=== PATIENT | male | born 1995 | race American Indian/Alaskan Native ===

== ENCOUNTER 2020-05-25 13:38 | Inpatient (IN) | payer MEDICAID ==
[2020-05-25] MEDS ORDERED: Sodium Chloride 0.9% 10 ML Syringe FLUSH PRN ×3 (13:49→19:23)
--- NOTE | 2020-05-25 13:54 | EDM.PDOC ---
ED HPI GENERAL MEDICAL PROBLEM - General Stated Complaint: [facility] Time Seen by Provider: 05/25/20 13:48 Source of Information: Reports: Patient, EMS, RN Notes Reviewed History Limitations: Reports: No Limitations - History of Present Illness INITIAL COMMENTS - FREE TEXT/NARRATIVE: 24-year-old gentleman presents emergency department today following an intentional suicide attempt with multiple pill ingestions unfortunately these were empty pill bottles leftover from his dad who recently a couple months ago from cancer. Unknown substance amount unknown type of product.. He does not admit wanting to he is not sure what medications he took - Related Data Allergies Allergy/AdvReac Type Severity Reaction Status Date / Time No Known Allergies Allergy Verified 05/25/20 14:28 Home Meds: Home Meds NK [No Known Home Meds] 05/25/20 [History] Past Medical History - Past Health History Medical/Surgical History: Denies Medical/Surgical History Social & Family History - Tobacco Use Tobacco Use Status *Q: Current Some Day Tobacco User Review of Systems - Review of Systems Review Of Systems: See Below Constitutional: Reports: No Symptoms Respiratory: Reports: No Symptoms Cardiovascular: Reports: No Symptoms GI/Abdominal: Reports: Nausea, Vomiting Psychiatric: Reports: Suicidal Ideation ED EXAM, GENERAL - Physical Exam Exam: See Below Exam Limited By: No Limitations General Appearance: Alert, Mild Distress Eye Exam: Bilateral Eye: PERRL Throat/Mouth: No Airway Compromise Respiratory/Chest: No Respiratory Distress, Lungs Clear, Normal Breath Sounds, No Accessory Muscle Use, Chest Non-Tender Cardiovascular: Regular Rate, Rhythm, No Murmur GI/Abdominal: Soft, Non-Tender Psychiatric: Depressed Mood, Other (Suicidal ideation) Course - Vital Signs Last Recorded V/S: Last Vital Signs Temp 96.8 F L 05/25/20 14:22 Pulse 72 05/25/20 17:04 Resp 16 05/25/20 17:04 BP 141/90 H 05/25/20 17:04 Pulse Ox 97 05/25/20 17:04 - Orders/Labs/Meds Orders: Active Orders 24 hr Category Date Time Status EKG Documentation Completion [RC] ASDIRECTED Care 05/25/20 13:49 Active Peripheral IV Care [RC] . DIRECTED Care 05/25/20 13:49 Active DRUG SCREEN, URINE [URCHEM] Urgent Lab 05/25/20 17:24 Ordered Sodium Chloride 0.9% [Saline Flush] Med 05/25/20 13:49 Active 10 ml FLUSH ASDIRECTED PRN Sodium Chloride 0.9% [Saline Flush] Med 05/25/20 13:49 Active 10 ml FLUSH ASDIRECTED PRN Peripheral IV Insertion Adult [OM.PC] Urgent Oth 05/25/20 13:49 Ordered EKG 12 Lead [EK] Urgent Ther 05/25/20 13:49 Ordered Medication Orders Sodium Chloride (Saline Flush) 10 ml FLUSH ASDIRECTED PRN PRN Reason: Keep Vein Open Last Admin: 05/25/20 14:10 Dose: 10 ml Documented by: [id number] Sodium Chloride (Saline Flush) 10 ml FLUSH ASDIRECTED PRN PRN Reason: Keep Vein Open Last Admin: 05/25/20 16:35 Dose: 10 ml Documented by: [id number] Labs: Laboratory Tests 05/25/20 05/25/20 05/25/20 Range/Units 14:05 14:05 14:05 WBC (4.5-11.0) K/uL RBC (4.30-5.90) M/uL Hgb (12.0-15.0) g/dL Hct (40.0-54.0) % MCV (80-98) fL MCH (27-31) pg MCHC (32-36) % Plt Count (150-400) K/uL Neut % (Auto) (36-66) % Lymph % (Auto) (24-44) % Johnson % (Auto) (2-6) % Eos % (Auto) (2-4) % Baso % (Auto) (0-1) % Sodium (140-148) mmol/L Potassium (3.6-5.2) mmol/L Chloride (100-108) mmol/L Carbon Dioxide (21-32) mmol/L Anion Gap (5.0-14.0) mmol/L BUN (7-18) mg/dL Creatinine (0.8-1.3) mg/dL Est Cr Clr Drug Dosing mL/min Estimated GFR (MDRD) (>60) Glucose (74-106) mg/dL Lactic Acid 1.4 (0.4-2.0) mmol/L Calcium (8.5-10.1) mg/dL Total Bilirubin (0.2-1.0) mg/dL AST (15-37) U/L ALT (12-78) U/L Alkaline Phosphatase (46-116) U/L Total Protein (6.4-8.2) g/dL Albumin (3.4-5.0) g/dL Globulin (2.3-3.5) g/dL Albumin/Globulin Ratio (1.2-2.2) Salicylates 0.6 L (2.0-20.0) mg/dL Acetaminophen 56.7 H (10.0-30.0) ug/mL Ethyl Alcohol mg/dL 05/25/20 05/25/20 05/25/20 Range/Units 14:05 14:05 14:05 WBC 6.4 (4.5-11.0) K/uL RBC 4.95 (4.30-5.90) M/uL Hgb 14.0 (12.0-15.0) g/dL Hct 42.9 (40.0-54.0) % MCV 87 (80-98) fL MCH 28 (27-31) pg MCHC 33 (32-36) % Plt Count 293 (150-400) K/uL Neut % (Auto) 75 H (36-66) % Lymph % (Auto) 18 L (24-44) % Johnson % (Auto) 7 H (2-6) % Eos % (Auto) 0 L (2-4) % Baso % (Auto) 0 (0-1) % Sodium 139 L (140-148) mmol/L Potassium 3.8 (3.6-5.2) mmol/L Chloride 102 (100-108) mmol/L Carbon Dioxide 25 (21-32) mmol/L Anion Gap 15.8 H (5.0-14.0) mmol/L BUN 13 (7-18) mg/dL Creatinine 0.8 (0.8-1.3) mg/dL Est Cr Clr Drug Dosing 146.16 mL/min Estimated GFR (MDRD) > 60 (>60) Glucose 129 H (74-106) mg/dL Lactic Acid (0.4-2.0) mmol/L Calcium 9.3 (8.5-10.1) mg/dL Total Bilirubin 0.7 (0.2-1.0) mg/dL AST 23 (15-37) U/L ALT 58 (12-78) U/L Alkaline Phosphatase 65 (46-116) U/L Total Protein 8.5 H (6.4-8.2) g/dL Albumin 4.3 (3.4-5.0) g/dL Globulin 4.2 H (2.3-3.5) g/dL Albumin/Globulin Ratio 1.0 L (1.2-2.2) Salicylates (2.0-20.0) mg/dL Acetaminophen (10.0-30.0) ug/mL Ethyl Alcohol < 3 mg/dL 05/25/20 Range/Units 16:20 WBC (4.5-11.0) K/uL RBC (4.30-5.90) M/uL Hgb (12.0-15.0) g/dL Hct (40.0-54.0) % MCV (80-98) fL MCH (27-31) pg MCHC (32-36) % Plt Count (150-400) K/uL Neut % (Auto) (36-66) % Lymph % (Auto) (24-44) % Johnson % (Auto) (2-6) % Eos % (Auto) (2-4) % Baso % (Auto) (0-1) % Sodium (140-148) mmol/L Potassium (3.6-5.2) mmol/L Chloride (100-108) mmol/L Carbon Dioxide (21-32) mmol/L Anion Gap (5.0-14.0) mmol/L BUN (7-18) mg/dL Creatinine (0.8-1.3) mg/dL Est Cr Clr Drug Dosing mL/min Estimated GFR (MDRD) (>60) Glucose (74-106) mg/dL Lactic Acid (0.4-2.0) mmol/L Calcium (8.5-10.1) mg/dL Total Bilirubin (0.2-1.0) mg/dL AST (15-37) U/L ALT (12-78) U/L Alkaline Phosphatase (46-116) U/L Total Protein (6.4-8.2) g/dL Albumin (3.4-5.0) g/dL Globulin (2.3-3.5) g/dL Albumin/Globulin Ratio (1.2-2.2) Salicylates (2.0-20.0) mg/dL Acetaminophen 36.4 H (10.0-30.0) ug/mL Ethyl Alcohol mg/dL Meds: Medications Generic Name Dose Route Start Last Admin Trade Name Freq PRN Reason Stop Dose Admin Sodium Chloride 10 ml 05/25/20 13:49 05/25/20 14:10 Saline Flush FLUSH 10 ml ASDIRECTED PRN Administration Keep Vein Open Sodium Chloride 10 ml 05/25/20 13:49 05/25/20 16:35 Saline Flush FLUSH 10 ml ASDIRECTED PRN Administration Keep Vein Open Discontinued Medications Generic Name Dose Route Start Last Admin Trade Name Freq PRN Reason Stop Dose Admin Acetylcysteine 10,886 mg/ 254.43 mls @ 254.43 mls/hr 05/25/20 16:12 05/25/20 16:33 Dextrose/Water IV 05/25/20 16:13 254.43 mls/hr STAT STA Administration Protocol Metoclopramide HCl 5 mg 05/25/20 14:01 05/25/20 14:09 Reglan IVPUSH 05/25/20 14:02 5 mg ONETIME ONE Administration - Re-Assessments/Exams Free Text/Narrative Re-Assessment/Exam: 05/25/20 16:17 Because his Tylenol level is markedly elevated Poison control recommends starting N-acetylcysteine redraw Tylenol level at this time the estimate time of ingestion was around noon there will be a 4-hour level now Departure - Departure Time of Disposition: 17:27 Disposition: Admitted As Inpatient 66 Condition: Fair Clinical Impression: Intentional acetaminophen overdose Qualifiers: Encounter type: initial encounter Qualified Code(s): T39.1X2A - Poisoning by 4- Aminophenol derivatives, intentional self-harm, initial encounter - Discharge Information Referrals: PCP,None [Primary Care Provider] - Sepsis Event Note (ED) - Focused Exam Vital Signs: Vital Signs Temp Pulse Resp BP Pulse Ox 05/25/20 17:04 72 16 141/90 H 97 05/25/20 15:23 78 19 130/82 98 05/25/20 14:38 64 19 120/85 96 05/25/20 14:22 96.8 F L 81 21 H 121/83 96 05/25/20 13:42 81 21 H 121/83 96 - My Orders Last 24 Hours: My Active Orders 05/25/20 13:49 EKG Documentation Completion [RC] ASDIRECTED Peripheral IV Care [RC] . DIRECTED Sodium Chloride 0.9% [Saline Flush] 10 ml FLUSH ASDIRECTED PRN Sodium Chloride 0.9% [Saline Flush] 10 ml FLUSH ASDIRECTED PRN Peripheral IV Insertion Adult [OM.PC] Urgent EKG 12 Lead [EK] Urgent 05/25/20 17:24 DRUG SCREEN, URINE [URCHEM] Urgent - Assessment/Plan Last 24 Hours: My Active Orders 05/25/20 13:49 EKG Documentation Completion [RC] ASDIRECTED Peripheral IV Care [RC] . DIRECTED Sodium Chloride 0.9% [Saline Flush] 10 ml FLUSH ASDIRECTED PRN Sodium Chloride 0.9% [Saline Flush] 10 ml FLUSH ASDIRECTED PRN Peripheral IV Insertion Adult [OM.PC] Urgent EKG 12 Lead [EK] Urgent 05/25/20 17:24 DRUG SCREEN, URINE [URCHEM] Urgent Plan: Assessment Acuity = acute Site and laterality = intentional overdose Etiology = unknown substance Tylenol included Manifestations = none Location of injury = Home Lab values = CBC CMP unremarkable Tylenol level 56.7 this is approximately 2 hours after he was brought in 2 hours later Tylenol number is 36.4 Plan Call discussed case with hospitalist at 1720 and agreed to come and evaluate the patient in the emergency department for admission first dose of N- acetylcysteine has been given This note was dictated using [employer] voice recognition software please call with any questions on syntax or grammar.
[2020-05-25] MEDS ORDERED: Metoclopramide 10 MG/2 ML SDV IVPUSH ONE (14:01)
[2020-05-25] MEDS ORDERED: WATER IV STA ×2 (16:12)
[2020-05-25] MEDS ORDERED: DEXTROSE 5% IV STA ×2 (16:12)
[2020-05-25] MEDS ORDERED: ACETYLCYSTEINE IV STA ×2 (16:12)
[2020-05-25] MEDS ORDERED: ACETYLCYSTEINE IV ONE ×4 (18:21→22:20)
[2020-05-25] MEDS ORDERED: DEXTROSE 5% IV ONE ×4 (18:21→22:20)
[2020-05-25] MEDS ORDERED: WATER IV ONE ×4 (18:21→22:20)
--- NOTE | 2020-05-25 18:23 | PCM.HP.2 ---
H&P History of Present Illness - General Date of Service: 05/25/20 Admit Problem/Dx: Admission Diagnosis/Problem Admission Diagnosis/Problem Medication overdose Source of Information: Patient, Provider, RN Notes Reviewed History Limitations: Reports: Uncooperative (Mildly to moderately agitated) - History of Present Illness Initial Comments - Free Text/Narative: Mr. Carrion is a 24-year-old gentleman who was admitted through the emergency department with a drug overdose secondary to an apparent suicide attempt. He reports that he does not want to keep living the way he has and attempted to end his life today by overdose. He has been smoking methamphetamine on a daily basis. He thinks that he took Tylenol as well as some other medications but is unclear as to what they were. Tylenol level was found to be elevated but has improved after 4 hours. He has been started on acetylcysteine in the emergency department. - Related Data Allergies/Adverse Reactions: Allergies Allergy/AdvReac Type Severity Reaction Status Date / Time No Known Allergies Allergy Verified 05/25/20 14:28 Home Medications: Home Meds NK [No Known Home Meds] 05/25/20 [History] Past Medical History - Past Health History Medical/Surgical History: Denies Medical/Surgical History Social & Family History - Tobacco Use Tobacco Use Status *Q: Never Tobacco User - Recreational Drug Use Recreational Drug Use: Yes Recreational Drug Type: Reports: Methamphetamine H&P Review of Systems - Review of Systems: Review Of Systems: See Below General: Reports: No Symptoms HEENT: Reports: No Symptoms Pulmonary: Reports: No Symptoms Cardiovascular: Reports: No Symptoms Gastrointestinal: Reports: No Symptoms Genitourinary: Reports: No Symptoms Musculoskeletal: Reports: No Symptoms Skin: Reports: No Symptoms Psychiatric: Reports: Depression, Agitation, Suicidal Ideation. Denies: Hallucinations, Homicidal Ideation Neurological: Reports: No Symptoms Hematologic/Lymphatic: Reports: No Symptoms Immunologic: Reports: No Symptoms Exam - Exam Exam: See Below - Vital Signs Vital Signs: Last Vital Signs Temp 96.8 F L 05/25/20 14:22 Pulse 113 H 05/25/20 18:20 Resp 20 05/25/20 18:20 BP 131/52 L 05/25/20 18:20 Pulse Ox 98 05/25/20 17:53 Weight: 160 lb - Exam General: Alert, Cooperative, Moderate Distress HEENT: Conjunctiva Clear, Hearing Intact, Mucosa Moist & [place], Normal Nasal Septum, Posterior Pharynx Clear, Pupils Equal Neck: Supple, Trachea Midline, +2 Carotid Pulse wo Bruit Lungs: Clear to Auscultation, Normal Respiratory Effort Cardiovascular: Regular Rate, Regular Rhythm, Normal S1, Normal S2. No: Systolic Murmur, Diastolic Murmur GI/Abdominal Exam: Soft, Non-Tender, No Organomegaly, No Distention Back Exam: Normal Inspection, Full Range of Motion Extremities: Non-Tender, No Pedal Edema Skin: Warm, Dry, Intact Neurological: Cranial Nerves Intact, Strength Equal Bilateral, Normal Speech, Normal Tone, Sensation Intact. No: Focal Deficit Psychiatric: Depressed, Agitated, Suicidal Ideation - Patient Data Lab Results Last 24 hrs: Laboratory Results - last 24 hr 05/25/20 05/25/20 05/25/20 Range/Units 14:05 14:05 14:05 WBC (4.5-11.0) K/uL RBC (4.30-5.90) M/uL Hgb (12.0-15.0) g/dL Hct (40.0-54.0) % MCV (80-98) fL MCH (27-31) pg MCHC (32-36) % Plt Count (150-400) K/uL Neut % (Auto) (36-66) % Lymph % (Auto) (24-44) % Mckinley % (Auto) (2-6) % Eos % (Auto) (2-4) % Baso % (Auto) (0-1) % Sodium (140-148) mmol/L Potassium (3.6-5.2) mmol/L Chloride (100-108) mmol/L Carbon Dioxide (21-32) mmol/L Anion Gap (5.0-14.0) mmol/L BUN (7-18) mg/dL Creatinine (0.8-1.3) mg/dL Est Cr Clr Drug Dosing mL/min Estimated GFR (MDRD) (>60) Glucose (74-106) mg/dL Lactic Acid 1.4 (0.4-2.0) mmol/L Calcium (8.5-10.1) mg/dL Magnesium (1.8-2.4) mg/dL Total Bilirubin (0.2-1.0) mg/dL AST (15-37) U/L ALT (12-78) U/L Alkaline Phosphatase (46-116) U/L Total Protein (6.4-8.2) g/dL Albumin (3.4-5.0) g/dL Globulin (2.3-3.5) g/dL Albumin/Globulin Ratio (1.2-2.2) Salicylates 0.6 L (2.0-20.0) mg/dL Urine Opiates Screen (NEGATIVE) Ur Oxycodone Screen (NEGATIVE) Urine Methadone Screen (NEGATIVE) Ur Propoxyphene Screen (NEGATIVE) Acetaminophen 56.7 H (10.0-30.0) ug/mL Ur Barbiturates Screen (NEGATIVE) Ur Tricyclics Screen (NEGATIVE) Ur Phencyclidine Scrn (NEGATIVE) Ur Amphetamine Screen (NEGATIVE) U Methamphetamines Scrn (NEGATIVE) Urine MDMA Screen (NEGATIVE) U Benzodiazepines Scrn (NEGATIVE) U Cocaine Metab Screen (NEGATIVE) U Marijuana (THC) Screen (NEGATIVE) Ethyl Alcohol mg/dL 05/25/20 05/25/20 05/25/20 Range/Units 14:05 14:05 14:05 WBC 6.4 (4.5-11.0) K/uL RBC 4.95 (4.30-5.90) M/uL Hgb 14.0 (12.0-15.0) g/dL Hct 42.9 (40.0-54.0) % MCV 87 (80-98) fL MCH 28 (27-31) pg MCHC 33 (32-36) % Plt Count 293 (150-400) K/uL Neut % (Auto) 75 H (36-66) % Lymph % (Auto) 18 L (24-44) % Mckinley % (Auto) 7 H (2-6) % Eos % (Auto) 0 L (2-4) % Baso % (Auto) 0 (0-1) % Sodium 139 L (140-148) mmol/L Potassium 3.8 (3.6-5.2) mmol/L Chloride 102 (100-108) mmol/L Carbon Dioxide 25 (21-32) mmol/L Anion Gap 15.8 H (5.0-14.0) mmol/L BUN 13 (7-18) mg/dL Creatinine 0.8 (0.8-1.3) mg/dL Est Cr Clr Drug Dosing 146.16 mL/min Estimated GFR (MDRD) > 60 (>60) Glucose 129 H (74-106) mg/dL Lactic Acid (0.4-2.0) mmol/L Calcium 9.3 (8.5-10.1) mg/dL Magnesium (1.8-2.4) mg/dL Total Bilirubin 0.7 (0.2-1.0) mg/dL AST 23 (15-37) U/L ALT 58 (12-78) U/L Alkaline Phosphatase 65 (46-116) U/L Total Protein 8.5 H (6.4-8.2) g/dL Albumin 4.3 (3.4-5.0) g/dL Globulin 4.2 H (2.3-3.5) g/dL Albumin/Globulin Ratio 1.0 L (1.2-2.2) Salicylates (2.0-20.0) mg/dL Urine Opiates Screen (NEGATIVE) Ur Oxycodone Screen (NEGATIVE) Urine Methadone Screen (NEGATIVE) Ur Propoxyphene Screen (NEGATIVE) Acetaminophen (10.0-30.0) ug/mL Ur Barbiturates Screen (NEGATIVE) Ur Tricyclics Screen (NEGATIVE) Ur Phencyclidine Scrn (NEGATIVE) Ur Amphetamine Screen (NEGATIVE) U Methamphetamines Scrn (NEGATIVE) Urine MDMA Screen (NEGATIVE) U Benzodiazepines Scrn (NEGATIVE) U Cocaine Metab Screen (NEGATIVE) U Marijuana (THC) Screen (NEGATIVE) Ethyl Alcohol < 3 mg/dL 05/25/20 05/25/20 05/25/20 Range/Units 16:20 16:20 17:24 WBC (4.5-11.0) K/uL RBC (4.30-5.90) M/uL Hgb (12.0-15.0) g/dL Hct (40.0-54.0) % MCV (80-98) fL MCH (27-31) pg MCHC (32-36) % Plt Count (150-400) K/uL Neut % (Auto) (36-66) % Lymph % (Auto) (24-44) % Mckinley % (Auto) (2-6) % Eos % (Auto) (2-4) % Baso % (Auto) (0-1) % Sodium (140-148) mmol/L Potassium (3.6-5.2) mmol/L Chloride (100-108) mmol/L Carbon Dioxide (21-32) mmol/L Anion Gap (5.0-14.0) mmol/L BUN (7-18) mg/dL Creatinine (0.8-1.3) mg/dL Est Cr Clr Drug Dosing mL/min Estimated GFR (MDRD) (>60) Glucose (74-106) mg/dL Lactic Acid (0.4-2.0) mmol/L Calcium (8.5-10.1) mg/dL Magnesium 2.5 H (1.8-2.4) mg/dL Total Bilirubin (0.2-1.0) mg/dL AST (15-37) U/L ALT (12-78) U/L Alkaline Phosphatase (46-116) U/L Total Protein (6.4-8.2) g/dL Albumin (3.4-5.0) g/dL Globulin (2.3-3.5) g/dL Albumin/Globulin Ratio (1.2-2.2) Salicylates (2.0-20.0) mg/dL Urine Opiates Screen Negative (NEGATIVE) Ur Oxycodone Screen Negative (NEGATIVE) Urine Methadone Screen Negative (NEGATIVE) Ur Propoxyphene Screen Negative (NEGATIVE) Acetaminophen 36.4 H (10.0-30.0) ug/mL Ur Barbiturates Screen Negative (NEGATIVE) Ur Tricyclics Screen Negative (NEGATIVE) Ur Phencyclidine Scrn Negative (NEGATIVE) Ur Amphetamine Screen Presumptive positive H (NEGATIVE) U Methamphetamines Scrn Presumptive positive H (NEGATIVE) Urine MDMA Screen Negative (NEGATIVE) U Benzodiazepines Scrn Presumptive positive H (NEGATIVE) U Cocaine Metab Screen Negative (NEGATIVE) U Marijuana (THC) Screen Presumptive positive H (NEGATIVE) Ethyl Alcohol mg/dL Result Diagrams: 05/25/20 14:05 05/25/20 14:05 Sepsis Event Note - Evaluation Sepsis Screening Result: No Definite Risk - Focused Exam Vital Signs: Vital Signs Temp Pulse Resp BP Pulse Ox 05/25/20 18:20 113 H 20 131/52 L 05/25/20 17:53 78 19 123/63 98 05/25/20 17:04 72 16 141/90 H 97 05/25/20 15:23 78 19 130/82 98 05/25/20 14:38 64 19 120/85 96 05/25/20 14:22 96.8 F L 81 21 H 121/83 96 05/25/20 13:42 81 21 H 121/83 96 *Q Meaningful Use (ADM) - VTE Risk Assess *Q Each Risk Factor Represents 1 Point: None Total Score 1 Point Risk Factors: 0 Each Risk Factor Represents 2 Points: None Total Score 2 Point Risk Factors: 0 Each Risk Factor Represents 3 Points: None Total Score 3 Point Risk Factors: 0 Each Risk Factor Represents 5 Points: None Total Score 5 Point Risk Factors: 0 Venous Thromboembolism Risk Factor Score *Q: 0 Problem List Initiated/Reviewed/Updated: Yes Orders Last 24hrs: Active Orders 24 hr Category Date Time Status Patient Status Manage Transfer [TRANSFER] Routine ADT 05/25/20 18:13 Active EKG Documentation Completion [RC] ASDIRECTED Care 05/25/20 13:49 Active Peripheral IV Care [RC] . DIRECTED Care 05/25/20 13:49 Active Acetylcysteine [Acetadote 20%] 3,629 mg Med 05/25/20 18:21 Ordered Dextrose 5% in Water 500 ml IV ONETIME Acetylcysteine [Acetadote 20%] 7,258 mg Med 05/25/20 18:21 Ordered Dextrose 5% in Water 1,000 ml IV ONETIME Sodium Chloride 0.9% [Saline Flush] Med 05/25/20 13:49 Active 10 ml FLUSH ASDIRECTED PRN Sodium Chloride 0.9% [Saline Flush] Med 05/25/20 13:49 Active 10 ml FLUSH ASDIRECTED PRN Peripheral IV Insertion Adult [OM.PC] Urgent Oth 05/25/20 13:49 Ordered Resuscitation Status Routine Resus Stat 05/25/20 18:14 Ordered EKG 12 Lead [EK] Urgent Ther 05/25/20 13:49 Ordered Medication Orders Sodium Chloride (Saline Flush) 10 ml FLUSH ASDIRECTED PRN PRN Reason: Keep Vein Open Last Admin: 05/25/20 14:10 Dose: 10 ml Documented by: [id number] Sodium Chloride (Saline Flush) 10 ml FLUSH ASDIRECTED PRN PRN Reason: Keep Vein Open Last Admin: 05/25/20 16:35 Dose: 10 ml Documented by: [id number] Assessment/Plan Comment:: ASSESSMENT AND PLAN ACETAMINOPHEN OVERDOSE-intentional in an apparent suicide attempt. -Acetylcysteine 20-hour infusion protocol -IV fluids for hydration -Check labs in a.m. SUICIDE ATTEMPT-he admits depression and ongoing suicidal ideation -72-hour hold if needed -Plan transfer to inpatient psych for further evaluation and treatment when medically stable HISTORY OF METHAMPHETAMINE ABUSE -Monitor for withdrawal -Lorazepam as needed for management of withdrawal MAINTENANCE ISSUES -DVT prophylaxis; not indicated -GI prophylaxis; not indicated -Gaston catheter; not indicated -Nutrition; regular diet -Nicotine dependence; not required CODE STATUS-FULL CODE ADMISSION STATUS-patient will be admitted to inpatient status, expect at least a 2 night hospital stay for evaluation and management of problems as outlined above. At the time of this admission I do not reasonably expected evaluation and management of this problem will require more than a 96 hour hospital stay. DISPOSITION-anticipate discharge to home after the hospital stay. PRIMARY CARE PROVIDER- - Mortality Measure Prognosis:: Good
[2020-05-25] MEDS ORDERED: Ondansetron 4 MG/2 ML SDV IV PRN (19:23)
[2020-05-25] MEDS ORDERED: LORazepam 2 MG/ML SDV IVPUSH PRN (19:23)
[2020-05-25] MEDS: Sodium Chloride 0.9% 1,000 ML IV SCH (19:35)
[2020-05-25] MEDS ORDERED: Acetylcysteine 60 ML ONE (22:15)
[2020-05-25] MEDS ORDERED: Potassium Chloride 20 MEQ Tab.ER PO ONE (23:49)
[2020-05-26] MEDS: Potassium Chloride 20 MEQ in Premix Bag 1 BAG IV SCH ×2 (00:20→02:25)
[2020-05-26 06:29] LABS: ACETAMINOPHEN 0.6 ug/mL (10.0-30.0)
[2020-05-26] MEDS ORDERED: Potassium Chloride 20 MEQ Tab.ER PO ONE (08:30)
[2020-05-26] MEDS: Sodium Chloride 0.9% 1,000 ML IV SCH (12:59)
--- NOTE | 2020-05-26 14:09 | PCM.PN ---
- General Info Date of Service: 05/26/20 Subjective Update: Mr. Carrion has been stable since admission last night. He has completed acetylcysteine infusion. Most recent labs show a negligible Tylenol level, normal liver function and INR. He is now medically stable and awaiting transfer to inpatient psychiatric facility. Functional Status: Reports: Tolerating Diet, Ambulating, Urinating - Review of Systems General: Reports: No Symptoms Pulmonary: Reports: No Symptoms Cardiovascular: Reports: No Symptoms Gastrointestinal: Reports: No Symptoms - Patient Data Vitals - Most Recent: Last Vital Signs Temp 98.7 F 05/26/20 12:00 Pulse 66 05/26/20 12:00 Resp 20 05/26/20 12:00 BP 120/64 05/26/20 12:00 Pulse Ox 98 05/26/20 12:00 Weight - Most Recent: 158 lb 15.253 oz I&O - Last 24 Hours: Intake & Output 05/25/20 05/26/20 05/26/20 22:59 06:59 14:59 Intake Total 840 2293 480 Balance 840 2293 480 Lab Results Last 24 Hours: Laboratory Results - last 24 hr 05/25/20 05/25/20 05/25/20 Range/Units 14:05 14:05 14:05 WBC (4.5-11.0) K/uL RBC (4.30-5.90) M/uL Hgb (12.0-15.0) g/dL Hct (40.0-54.0) % MCV (80-98) fL MCH (27-31) pg MCHC (32-36) % Plt Count (150-400) K/uL Neut % (Auto) (36-66) % Lymph % (Auto) (24-44) % Alcorn % (Auto) (2-6) % Eos % (Auto) (2-4) % Baso % (Auto) (0-1) % PT (9.5-12.0) sec INR (0.80-1.20) Sodium (140-148) mmol/L Potassium (3.6-5.2) mmol/L Chloride (100-108) mmol/L Carbon Dioxide (21-32) mmol/L Anion Gap (5.0-14.0) mmol/L BUN (7-18) mg/dL Creatinine (0.8-1.3) mg/dL Est Cr Clr Drug Dosing mL/min Estimated GFR (MDRD) (>60) Glucose (74-106) mg/dL Lactic Acid 1.4 (0.4-2.0) mmol/L Calcium (8.5-10.1) mg/dL Magnesium (1.8-2.4) mg/dL Total Bilirubin (0.2-1.0) mg/dL AST (15-37) U/L ALT (12-78) U/L Alkaline Phosphatase (46-116) U/L Total Protein (6.4-8.2) g/dL Albumin (3.4-5.0) g/dL Globulin (2.3-3.5) g/dL Albumin/Globulin Ratio (1.2-2.2) Salicylates 0.6 L (2.0-20.0) mg/dL Urine Opiates Screen (NEGATIVE) Ur Oxycodone Screen (NEGATIVE) Urine Methadone Screen (NEGATIVE) Ur Propoxyphene Screen (NEGATIVE) Acetaminophen 56.7 H (10.0-30.0) ug/mL Ur Barbiturates Screen (NEGATIVE) Ur Tricyclics Screen (NEGATIVE) Ur Phencyclidine Scrn (NEGATIVE) Ur Amphetamine Screen (NEGATIVE) U Methamphetamines Scrn (NEGATIVE) Urine MDMA Screen (NEGATIVE) U Benzodiazepines Scrn (NEGATIVE) U Cocaine Metab Screen (NEGATIVE) U Marijuana (THC) Screen (NEGATIVE) Ethyl Alcohol mg/dL 05/25/20 05/25/20 05/25/20 Range/Units 14:05 14:05 14:05 WBC 6.4 (4.5-11.0) K/uL RBC 4.95 (4.30-5.90) M/uL Hgb 14.0 (12.0-15.0) g/dL Hct 42.9 (40.0-54.0) % MCV 87 (80-98) fL MCH 28 (27-31) pg MCHC 33 (32-36) % Plt Count 293 (150-400) K/uL Neut % (Auto) 75 H (36-66) % Lymph % (Auto) 18 L (24-44) % Alcorn % (Auto) 7 H (2-6) % Eos % (Auto) 0 L (2-4) % Baso % (Auto) 0 (0-1) % PT (9.5-12.0) sec INR (0.80-1.20) Sodium 139 L (140-148) mmol/L Potassium 3.8 (3.6-5.2) mmol/L Chloride 102 (100-108) mmol/L Carbon Dioxide 25 (21-32) mmol/L Anion Gap 15.8 H (5.0-14.0) mmol/L BUN 13 (7-18) mg/dL Creatinine 0.8 (0.8-1.3) mg/dL Est Cr Clr Drug Dosing 146.16 mL/min Estimated GFR (MDRD) > 60 (>60) Glucose 129 H (74-106) mg/dL Lactic Acid (0.4-2.0) mmol/L Calcium 9.3 (8.5-10.1) mg/dL Magnesium (1.8-2.4) mg/dL Total Bilirubin 0.7 (0.2-1.0) mg/dL AST 23 (15-37) U/L ALT 58 (12-78) U/L Alkaline Phosphatase 65 (46-116) U/L Total Protein 8.5 H (6.4-8.2) g/dL Albumin 4.3 (3.4-5.0) g/dL Globulin 4.2 H (2.3-3.5) g/dL Albumin/Globulin Ratio 1.0 L (1.2-2.2) Salicylates (2.0-20.0) mg/dL Urine Opiates Screen (NEGATIVE) Ur Oxycodone Screen (NEGATIVE) Urine Methadone Screen (NEGATIVE) Ur Propoxyphene Screen (NEGATIVE) Acetaminophen (10.0-30.0) ug/mL Ur Barbiturates Screen (NEGATIVE) Ur Tricyclics Screen (NEGATIVE) Ur Phencyclidine Scrn (NEGATIVE) Ur Amphetamine Screen (NEGATIVE) U Methamphetamines Scrn (NEGATIVE) Urine MDMA Screen (NEGATIVE) U Benzodiazepines Scrn (NEGATIVE) U Cocaine Metab Screen (NEGATIVE) U Marijuana (THC) Screen (NEGATIVE) Ethyl Alcohol < 3 mg/dL 05/25/20 05/25/20 05/25/20 Range/Units 16:20 16:20 17:24 WBC (4.5-11.0) K/uL RBC (4.30-5.90) M/uL Hgb (12.0-15.0) g/dL Hct (40.0-54.0) % MCV (80-98) fL MCH (27-31) pg MCHC (32-36) % Plt Count (150-400) K/uL Neut % (Auto) (36-66) % Lymph % (Auto) (24-44) % Alcorn % (Auto) (2-6) % Eos % (Auto) (2-4) % Baso % (Auto) (0-1) % PT (9.5-12.0) sec INR (0.80-1.20) Sodium (140-148) mmol/L Potassium (3.6-5.2) mmol/L Chloride (100-108) mmol/L Carbon Dioxide (21-32) mmol/L Anion Gap (5.0-14.0) mmol/L BUN (7-18) mg/dL Creatinine (0.8-1.3) mg/dL Est Cr Clr Drug Dosing mL/min Estimated GFR (MDRD) (>60) Glucose (74-106) mg/dL Lactic Acid (0.4-2.0) mmol/L Calcium (8.5-10.1) mg/dL Magnesium 2.5 H (1.8-2.4) mg/dL Total Bilirubin (0.2-1.0) mg/dL AST (15-37) U/L ALT (12-78) U/L Alkaline Phosphatase (46-116) U/L Total Protein (6.4-8.2) g/dL Albumin (3.4-5.0) g/dL Globulin (2.3-3.5) g/dL Albumin/Globulin Ratio (1.2-2.2) Salicylates (2.0-20.0) mg/dL Urine Opiates Screen Negative (NEGATIVE) Ur Oxycodone Screen Negative (NEGATIVE) Urine Methadone Screen Negative (NEGATIVE) Ur Propoxyphene Screen Negative (NEGATIVE) Acetaminophen 36.4 H (10.0-30.0) ug/mL Ur Barbiturates Screen Negative (NEGATIVE) Ur Tricyclics Screen Negative (NEGATIVE) Ur Phencyclidine Scrn Negative (NEGATIVE) Ur Amphetamine Screen Presumptive positive H (NEGATIVE) U Methamphetamines Scrn Presumptive positive H (NEGATIVE) Urine MDMA Screen Negative (NEGATIVE) U Benzodiazepines Scrn Presumptive positive H (NEGATIVE) U Cocaine Metab Screen Negative (NEGATIVE) U Marijuana (THC) Screen Presumptive positive H (NEGATIVE) Ethyl Alcohol mg/dL 05/25/20 05/26/20 05/26/20 Range/Units 22:40 06:02 06:02 WBC 10.3 (4.5-11.0) K/uL RBC 4.60 (4.30-5.90) M/uL Hgb 13.2 (12.0-15.0) g/dL Hct 40.5 (40.0-54.0) % MCV 88 (80-98) fL MCH 29 (27-31) pg MCHC 33 (32-36) % Plt Count 254 (150-400) K/uL Neut % (Auto) 55 (36-66) % Lymph % (Auto) 27 (24-44) % Alcorn % (Auto) 15 H (2-6) % Eos % (Auto) 2 (2-4) % Baso % (Auto) 0 (0-1) % PT 12.4 H (9.5-12.0) sec INR 1.14 (0.80-1.20) Sodium 139 L (140-148) mmol/L Potassium 3.0 L (3.6-5.2) mmol/L Chloride 102 (100-108) mmol/L Carbon Dioxide 26 (21-32) mmol/L Anion Gap 11.2 (5.0-14.0) mmol/L BUN 11 (7-18) mg/dL Creatinine 0.8 (0.8-1.3) mg/dL Est Cr Clr Drug Dosing 142.38 mL/min Estimated GFR (MDRD) > 60 (>60) Glucose 152 H (74-106) mg/dL Lactic Acid (0.4-2.0) mmol/L Calcium 8.6 (8.5-10.1) mg/dL Magnesium (1.8-2.4) mg/dL Total Bilirubin (0.2-1.0) mg/dL AST (15-37) U/L ALT (12-78) U/L Alkaline Phosphatase (46-116) U/L Total Protein (6.4-8.2) g/dL Albumin (3.4-5.0) g/dL Globulin (2.3-3.5) g/dL Albumin/Globulin Ratio (1.2-2.2) Salicylates (2.0-20.0) mg/dL Urine Opiates Screen (NEGATIVE) Ur Oxycodone Screen (NEGATIVE) Urine Methadone Screen (NEGATIVE) Ur Propoxyphene Screen (NEGATIVE) Acetaminophen (10.0-30.0) ug/mL Ur Barbiturates Screen (NEGATIVE) Ur Tricyclics Screen (NEGATIVE) Ur Phencyclidine Scrn (NEGATIVE) Ur Amphetamine Screen (NEGATIVE) U Methamphetamines Scrn (NEGATIVE) Urine MDMA Screen (NEGATIVE) U Benzodiazepines Scrn (NEGATIVE) U Cocaine Metab Screen (NEGATIVE) U Marijuana (THC) Screen (NEGATIVE) Ethyl Alcohol mg/dL 05/26/20 05/26/20 05/26/20 Range/Units 06:02 12:51 12:51 WBC (4.5-11.0) K/uL RBC (4.30-5.90) M/uL Hgb (12.0-15.0) g/dL Hct (40.0-54.0) % MCV (80-98) fL MCH (27-31) pg MCHC (32-36) % Plt Count (150-400) K/uL Neut % (Auto) (36-66) % Lymph % (Auto) (24-44) % Alcorn % (Auto) (2-6) % Eos % (Auto) (2-4) % Baso % (Auto) (0-1) % PT 12.3 H (9.5-12.0) sec INR 1.13 (0.80-1.20) Sodium 140 142 (140-148) mmol/L Potassium 3.4 L 4.1 (3.6-5.2) mmol/L Chloride 104 107 (100-108) mmol/L Carbon Dioxide 26 28 (21-32) mmol/L Anion Gap 13.4 7.4 (5.0-14.0) mmol/L BUN 7 6 L (7-18) mg/dL Creatinine 0.8 0.8 (0.8-1.3) mg/dL Est Cr Clr Drug Dosing 142.38 141.90 mL/min Estimated GFR (MDRD) > 60 > 60 (>60) Glucose 102 108 H (74-106) mg/dL Lactic Acid (0.4-2.0) mmol/L Calcium 8.3 L 8.1 L (8.5-10.1) mg/dL Magnesium 2.3 (1.8-2.4) mg/dL Total Bilirubin 0.2 D 0.2 (0.2-1.0) mg/dL AST 18 21 (15-37) U/L ALT 46 49 (12-78) U/L Alkaline Phosphatase 51 51 (46-116) U/L Total Protein 6.7 6.3 L (6.4-8.2) g/dL Albumin 3.2 L 3.0 L (3.4-5.0) g/dL Globulin 3.5 3.3 (2.3-3.5) g/dL Albumin/Globulin Ratio 0.9 L 0.9 L (1.2-2.2) Salicylates (2.0-20.0) mg/dL Urine Opiates Screen (NEGATIVE) Ur Oxycodone Screen (NEGATIVE) Urine Methadone Screen (NEGATIVE) Ur Propoxyphene Screen (NEGATIVE) Acetaminophen 0.6 L 1.0 L (10.0-30.0) ug/mL Ur Barbiturates Screen (NEGATIVE) Ur Tricyclics Screen (NEGATIVE) Ur Phencyclidine Scrn (NEGATIVE) Ur Amphetamine Screen (NEGATIVE) U Methamphetamines Scrn (NEGATIVE) Urine MDMA Screen (NEGATIVE) U Benzodiazepines Scrn (NEGATIVE) U Cocaine Metab Screen (NEGATIVE) U Marijuana (THC) Screen (NEGATIVE) Ethyl Alcohol mg/dL Med Orders - Current: Current Medications Acetylcysteine 7,258 mg/ (Dextrose/Water) 1,036.29 mls @ 64.768 mls/hr IV ONETIME ONE; Protocol Stop: 05/26/20 14:19 Last Admin: 05/25/20 23:47 Dose: 64.768 mls/hr Documented by: Lorazepam (Ativan) 0.5 mg IVPUSH Q2H PRN PRN Reason: Agitation Ondansetron HCl (Zofran) 4 mg IV Q4H PRN PRN Reason: Nausea/Vomiting Sodium Chloride (Saline Flush) 10 ml FLUSH ASDIRECTED PRN PRN Reason: Keep Vein Open Discontinued Medications Acetylcysteine 10,886 mg/ (Dextrose/Water) 254.43 mls @ 254.43 mls/hr IV STAT STA; Protocol Stop: 05/25/20 16:13 Last Admin: 05/25/20 16:33 Dose: 254.43 mls/hr Documented by: Acetylcysteine 3,629 mg/ (Dextrose/Water) 518.145 mls @ 129.536 mls/hr IV ONETIME ONE; Protocol Stop: 05/25/20 18:22 Last Admin: 05/25/20 19:35 Dose: 129.536 mls/hr Documented by: Sodium Chloride (Normal Saline) 1,000 mls @ 125 mls/hr IV ASDIRECTED ANA Last Admin: 05/26/20 12:59 Dose: 125 mls/hr Documented by: Acetylcysteine (Acetadote 20%) Confirm Administered Dose 60 mls @ as directed .ROUTE .STK-MED ONE Stop: 05/25/20 22:16 Last Admin: 05/26/20 00:00 Dose: Not Given Documented by: Potassium Chloride 20 meq/ (Premix) 0 mls @ 50 mls/hr IV Q2H [facility] Stop: 05/26/20 01:46 Last Admin: 05/26/20 02:25 Dose: 50 mls/hr Documented by: Potassium Chloride (Kcl 20 Meq In Water 100 Ml) Confirm Administered Dose 200 mls @ as directed .ROUTE .STK-MED ONE Stop: 05/26/20 00:14 Last Admin: 05/26/20 03:08 Dose: Not Given Documented by: Lidocaine HCl (Xylocaine-Mpf 1%) 5 ml INJECT ONETIME ONE Stop: 05/25/20 23:51 Last Admin: 05/26/20 03:11 Dose: 5 ml Documented by: Metoclopramide HCl (Reglan) 5 mg IVPUSH ONETIME ONE Stop: 05/25/20 14:02 Last Admin: 05/25/20 14:09 Dose: 5 mg Documented by: Potassium Chloride (Klor-Con M20) 40 meq PO ONETIME ONE Stop: 05/25/20 23:50 Last Admin: 05/26/20 00:20 Dose: 40 meq Documented by: Potassium Chloride (Klor-Con M20) 40 meq PO ONETIME ONE Stop: 05/26/20 08:31 Last Admin: 05/26/20 09:50 Dose: 40 meq Documented by: Sodium Chloride (Saline Flush) 10 ml FLUSH ASDIRECTED PRN PRN Reason: Keep Vein Open Last Admin: 05/25/20 14:10 Dose: 10 ml Documented by: Sodium Chloride (Saline Flush) 10 ml FLUSH ASDIRECTED PRN PRN Reason: Keep Vein Open Last Admin: 05/25/20 16:35 Dose: 10 ml Documented by: - Exam General: Alert, Oriented, Cooperative, No Acute Distress Lungs: Clear to Auscultation, Normal Respiratory Effort Cardiovascular: Regular Rate, Regular Rhythm, No Murmurs GI/Abdominal Exam: Soft, Non-Tender, No Organomegaly, No Distention Extremities: Non-Tender, No Pedal Edema Sepsis Event Note - Evaluation Sepsis Screening Result: No Definite Risk - Focused Exam Vital Signs: Vital Signs Temp Pulse Resp BP Pulse Ox 05/26/20 12:00 98.7 F 66 20 120/64 98 05/26/20 10:00 77 16 112/69 97 05/26/20 08:00 98.5 F 68 15 103/60 96 05/26/20 06:00 97.9 F 16 102/52 L 95 05/26/20 04:00 98 F 20 126/76 98 - Problem List Review Problem List Initiated/Reviewed/Updated: Yes - My Orders Last 24 Hours: My Active Orders 05/25/20 Dinner Regular Diet [DIET] 05/25/20 18:14 Resuscitation Status Routine 05/25/20 19:23 LORazepam [Ativan] 0.5 mg IVPUSH Q2H PRN Ondansetron [Zofran] 4 mg IV Q4H PRN Sodium Chloride 0.9% [Saline Flush] 10 ml FLUSH ASDIRECTED PRN Suicide Precautions [OM.PC] Q15M 05/25/20 19:23 Patient Status [ADT] Routine Ambulate [RC] QID Cardiac Monitoring [RC] Q6H Height and Weight [RC] DAILY Intake and Output [RC] QSHIFT Notify Provider Vital Signs [RC] ASDIRECTED Oxygen Therapy [RC] PRN Peripheral IV Care [RC] . DIRECTED Pulse Oximetry [RC] CONTINUOUS Up With Assistance [RC] ASDIRECTED Up to Chair [RC] QID Vital Signs [RC] Q2H Peripheral IV Insertion Adult [OM.PC] Routine VTE Pharmacological Contraindications [AST] Per Unit Routine 05/25/20 19:38 Suicide Precautions [OM.PC] Q15M 05/25/20 19:53 Suicide Precautions [OM.PC] Q15M 05/25/20 20:08 Suicide Precautions [OM.PC] Q15M 05/25/20 20:23 Suicide Precautions [OM.PC] Q15M 05/25/20 20:38 Suicide Precautions [OM.PC] Q15M 05/25/20 20:53 Suicide Precautions [OM.PC] Q15M 05/25/20 21:08 Suicide Precautions [OM.PC] Q15M 05/25/20 21:23 Suicide Precautions [OM.PC] Q15M 05/25/20 21:38 Suicide Precautions [OM.PC] Q15M 05/25/20 21:53 Suicide Precautions [OM.PC] Q15M 05/25/20 22:08 Suicide Precautions [OM.PC] Q15M 05/25/20 22:20 Acetylcysteine [Acetadote 20%] 7,258 mg Dextrose 5% in Water 1,000 ml IV ONETIME 05/25/20 22:23 Suicide Precautions [OM.PC] Q15M 05/25/20 22:38 Suicide Precautions [OM.PC] Q15M 05/25/20 22:53 Suicide Precautions [OM.PC] Q15M 05/25/20 23:08 Suicide Precautions [OM.PC] Q15M 05/25/20 23:23 Suicide Precautions [OM.PC] Q15M 05/25/20 23:38 Suicide Precautions [OM.PC] Q15M 05/25/20 23:53 Suicide Precautions [OM.PC] Q15M 05/26/20 00:08 Suicide Precautions [OM.PC] Q15M 05/26/20 00:23 Suicide Precautions [OM.PC] Q15M 05/26/20 00:38 Suicide Precautions [OM.PC] Q15M 05/26/20 00:53 Suicide Precautions [OM.PC] Q15M 05/26/20 01:08 Suicide Precautions [OM.PC] Q15M 05/26/20 01:23 Suicide Precautions [OM.PC] Q15M 05/26/20 01:38 Suicide Precautions [OM.PC] Q15M 05/26/20 01:53 Suicide Precautions [OM.PC] Q15M 05/26/20 02:08 Suicide Precautions [OM.PC] Q15M 05/26/20 02:23 Suicide Precautions [OM.PC] Q15M 05/26/20 02:38 Suicide Precautions [OM.PC] Q15M 05/26/20 02:53 Suicide Precautions [OM.PC] Q15M 05/26/20 03:08 Suicide Precautions [OM.PC] Q15M 05/26/20 03:23 Suicide Precautions [OM.PC] Q15M 05/26/20 03:38 Suicide Precautions [OM.PC] Q15M 05/26/20 03:53 Suicide Precautions [OM.PC] Q15M 05/26/20 04:08 Suicide Precautions [OM.PC] Q15M 05/26/20 04:23 Suicide Precautions [OM.PC] Q15M 05/26/20 04:38 Suicide Precautions [OM.PC] Q15M 05/26/20 04:53 Suicide Precautions [OM.PC] Q15M 05/26/20 05:08 Suicide Precautions [OM.PC] Q15M 05/26/20 05:23 Suicide Precautions [OM.PC] Q15M 05/26/20 05:38 Suicide Precautions [OM.PC] Q15M 05/26/20 05:53 Suicide Precautions [OM.PC] Q15M 05/26/20 06:08 Suicide Precautions [OM.PC] Q15M 05/26/20 06:23 Suicide Precautions [OM.PC] Q15M 05/26/20 06:38 Suicide Precautions [OM.PC] Q15M 05/26/20 06:53 Suicide Precautions [OM.PC] Q15M 05/26/20 07:08 Suicide Precautions [OM.PC] Q15M 05/26/20 07:23 Suicide Precautions [OM.PC] Q15M 05/26/20 07:38 Suicide Precautions [OM.PC] Q15M 05/26/20 07:53 Suicide Precautions [OM.PC] Q15M 05/26/20 08:08 Suicide Precautions [OM.PC] Q15M 05/26/20 08:23 Suicide Precautions [OM.PC] Q15M 05/26/20 08:38 Suicide Precautions [OM.PC] Q15M 05/26/20 08:53 Suicide Precautions [OM.PC] Q15M 05/26/20 09:08 Suicide Precautions [OM.PC] Q15M 05/26/20 09:23 Suicide Precautions [OM.PC] Q15M 05/26/20 09:38 Suicide Precautions [OM.PC] Q15M 05/26/20 09:53 Suicide Precautions [OM.PC] Q15M 05/26/20 10:08 Suicide Precautions [OM.PC] Q15M 05/26/20 10:23 Suicide Precautions [OM.PC] Q15M 05/26/20 10:38 Suicide Precautions [OM.PC] Q15M 05/26/20 10:53 Suicide Precautions [OM.PC] Q15M 05/26/20 11:08 Suicide Precautions [OM.PC] Q15M 05/26/20 11:23 Suicide Precautions [OM.PC] Q15M 05/26/20 11:38 Suicide Precautions [OM.PC] Q15M 05/26/20 11:53 Suicide Precautions [OM.PC] Q15M 05/26/20 12:08 Suicide Precautions [OM.PC] Q15M 05/26/20 12:23 Suicide Precautions [OM.PC] Q15M 05/26/20 12:38 Suicide Precautions [OM.PC] Q15M 05/26/20 12:53 Suicide Precautions [OM.PC] Q15M 05/26/20 13:08 Suicide Precautions [OM.PC] Q15M 05/26/20 13:23 Suicide Precautions [OM.PC] Q15M 05/26/20 13:38 Suicide Precautions [OM.PC] Q15M 05/26/20 13:53 Suicide Precautions [OM.PC] Q15M 05/26/20 14:05 Convert IV to Saline Lock [OM.PC] Routine 05/26/20 14:08 Suicide Precautions [OM.PC] Q15M 05/26/20 14:23 Suicide Precautions [OM.PC] Q15M 05/26/20 14:38 Suicide Precautions [OM.PC] Q15M 05/26/20 14:53 Suicide Precautions [OM.PC] Q15M 05/26/20 15:08 Suicide Precautions [OM.PC] Q15M 05/26/20 15:23 Suicide Precautions [OM.PC] Q15M 05/26/20 15:38 Suicide Precautions [OM.PC] Q15M 05/26/20 15:53 Suicide Precautions [OM.PC] Q15M 05/26/20 16:08 Suicide Precautions [OM.PC] Q15M 05/26/20 16:23 Suicide Precautions [OM.PC] Q15M 05/26/20 16:38 Suicide Precautions [OM.PC] Q15M 05/26/20 16:53 Suicide Precautions [OM.PC] Q15M 05/26/20 17:08 Suicide Precautions [OM.PC] Q15M 05/26/20 17:23 Suicide Precautions [OM.PC] Q15M 05/26/20 17:38 Suicide Precautions [OM.PC] Q15M 05/26/20 17:53 Suicide Precautions [OM.PC] Q15M 05/26/20 18:08 Suicide Precautions [OM.PC] Q15M 05/26/20 18:23 Suicide Precautions [OM.PC] Q15M 05/26/20 18:38 Suicide Precautions [OM.PC] Q15M 05/26/20 18:53 Suicide Precautions [OM.PC] Q15M 05/26/20 19:08 Suicide Precautions [OM.PC] Q15M 05/26/20 19:23 Suicide Precautions [OM.PC] Q15M 05/26/20 19:38 Suicide Precautions [OM.PC] Q15M 05/26/20 19:53 Suicide Precautions [OM.PC] Q15M 05/26/20 20:08 Suicide Precautions [OM.PC] Q15M 05/26/20 20:23 Suicide Precautions [OM.PC] Q15M 05/26/20 20:38 Suicide Precautions [OM.PC] Q15M 05/26/20 20:53 Suicide Precautions [OM.PC] Q15M 05/26/20 21:08 Suicide Precautions [OM.PC] Q15M 05/26/20 21:23 Suicide Precautions [OM.PC] Q15M 05/26/20 21:38 Suicide Precautions [OM.PC] Q15M 05/26/20 21:53 Suicide Precautions [OM.PC] Q15M 05/26/20 22:08 Suicide Precautions [OM.PC] Q15M 05/26/20 22:23 Suicide Precautions [OM.PC] Q15M 05/26/20 22:38 Suicide Precautions [OM.PC] Q15M 05/26/20 22:53 Suicide Precautions [OM.PC] Q15M 05/26/20 23:08 Suicide Precautions [OM.PC] Q15M 05/26/20 23:23 Suicide Precautions [OM.PC] Q15M 05/26/20 23:38 Suicide Precautions [OM.PC] Q15M 05/26/20 23:53 Suicide Precautions [OM.PC] Q15M 05/27/20 00:08 Suicide Precautions [OM.PC] Q15M 05/27/20 00:23 Suicide Precautions [OM.PC] Q15M 05/27/20 00:38 Suicide Precautions [OM.PC] Q15M 05/27/20 00:53 Suicide Precautions [OM.PC] Q15M 05/27/20 01:08 Suicide Precautions [OM.PC] Q15M 05/27/20 01:23 Suicide Precautions [OM.PC] Q15M 05/27/20 01:38 Suicide Precautions [OM.PC] Q15M 05/27/20 01:53 Suicide Precautions [OM.PC] Q15M 05/27/20 02:08 Suicide Precautions [OM.PC] Q15M 05/27/20 02:23 Suicide Precautions [OM.PC] Q15M 05/27/20 02:38 Suicide Precautions [OM.PC] Q15M 05/27/20 02:53 Suicide Precautions [OM.PC] Q15M 05/27/20 03:08 Suicide Precautions [OM.PC] Q15M 05/27/20 03:23 Suicide Precautions [OM.PC] Q15M 05/27/20 03:38 Suicide Precautions [OM.PC] Q15M 05/27/20 03:53 Suicide Precautions [OM.PC] Q15M 05/27/20 04:08 Suicide Precautions [OM.PC] Q15M 05/27/20 04:23 Suicide Precautions [OM.PC] Q15M 05/27/20 04:38 Suicide Precautions [OM.PC] Q15M 05/27/20 04:53 Suicide Precautions [OM.PC] Q15M 05/27/20 05:08 Suicide Precautions [OM.PC] Q15M 05/27/20 05:23 Suicide Precautions [OM.PC] Q15M 05/27/20 05:38 Suicide Precautions [OM.PC] Q15M 05/27/20 05:53 Suicide Precautions [OM.PC] Q15M 05/27/20 06:08 Suicide Precautions [OM.PC] Q15M 05/27/20 06:23 Suicide Precautions [OM.PC] Q15M 05/27/20 06:38 Suicide Precautions [OM.PC] Q15M 05/27/20 06:53 Suicide Precautions [OM.PC] Q15M 05/27/20 07:08 Suicide Precautions [OM.PC] Q15M 05/27/20 07:23 Suicide Precautions [OM.PC] Q15M 05/27/20 07:38 Suicide Precautions [OM.PC] Q15M 05/27/20 07:53 Suicide Precautions [OM.PC] Q15M 05/27/20 08:08 Suicide Precautions [OM.PC] Q15M 05/27/20 08:23 Suicide Precautions [OM.PC] Q15M 05/27/20 08:38 Suicide Precautions [OM.PC] Q15M 05/27/20 08:53 Suicide Precautions [OM.PC] Q15M 05/27/20 09:08 Suicide Precautions [OM.PC] Q15M 05/27/20 09:23 Suicide Precautions [OM.PC] Q15M 05/27/20 09:38 Suicide Precautions [OM.PC] Q15M 05/27/20 09:53 Suicide Precautions [OM.PC] Q15M 05/27/20 10:08 Suicide Precautions [OM.PC] Q15M 05/27/20 10:23 Suicide Precautions [OM.PC] Q15M 05/27/20 10:38 Suicide Precautions [OM.PC] Q15M 05/27/20 10:53 Suicide Precautions [OM.PC] Q15M 05/27/20 11:08 Suicide Precautions [OM.PC] Q15M 05/27/20 11:23 Suicide Precautions [OM.PC] Q15M 05/27/20 11:38 Suicide Precautions [OM.PC] Q15M 05/27/20 11:53 Suicide Precautions [OM.PC] Q15M 05/27/20 12:08 Suicide Precautions [OM.PC] Q15M 05/27/20 12:23 Suicide Precautions [OM.PC] Q15M 05/27/20 12:38 Suicide Precautions [OM.PC] Q15M 05/27/20 12:53 Suicide Precautions [OM.PC] Q15M 05/27/20 13:08 Suicide Precautions [OM.PC] Q15M 05/27/20 13:23 Suicide Precautions [OM.PC] Q15M 05/27/20 13:38 Suicide Precautions [OM.PC] Q15M 05/27/20 13:53 Suicide Precautions [OM.PC] Q15M 05/27/20 14:08 Suicide Precautions [OM.PC] Q15M 05/27/20 14:23 Suicide Precautions [OM.PC] Q15M 05/27/20 14:38 Suicide Precautions [OM.PC] Q15M 05/27/20 14:53 Suicide Precautions [OM.PC] Q15M 05/27/20 15:08 Suicide Precautions [OM.PC] Q15M 05/27/20 15:23 Suicide Precautions [OM.PC] Q15M 05/27/20 15:38 Suicide Precautions [OM.PC] Q15M 05/27/20 15:53 Suicide Precautions [OM.PC] Q15M 05/27/20 16:08 Suicide Precautions [OM.PC] Q15M 05/27/20 16:23 Suicide Precautions [OM.PC] Q15M 05/27/20 16:38 Suicide Precautions [OM.PC] Q15M 05/27/20 16:53 Suicide Precautions [OM.PC] Q15M 05/27/20 17:08 Suicide Precautions [OM.PC] Q15M 05/27/20 17:23 Suicide Precautions [OM.PC] Q15M 05/27/20 17:38 Suicide Precautions [OM.PC] Q15M 05/27/20 17:53 Suicide Precautions [OM.PC] Q15M 05/27/20 18:08 Suicide Precautions [OM.PC] Q15M 05/27/20 18:23 Suicide Precautions [OM.PC] Q15M 05/27/20 18:38 Suicide Precautions [OM.PC] Q15M 05/27/20 18:53 Suicide Precautions [OM.PC] Q15M 05/27/20 19:08 Suicide Precautions [OM.PC] Q15M 05/27/20 19:23 Suicide Precautions [OM.PC] Q15M 05/27/20 19:38 Suicide Precautions [OM.PC] Q15M 05/27/20 19:53 Suicide Precautions [OM.PC] Q15M 05/27/20 20:08 Suicide Precautions [OM.PC] Q15M 05/27/20 20:23 Suicide Precautions [OM.PC] Q15M 05/27/20 20:38 Suicide Precautions [OM.PC] Q15M 05/27/20 20:53 Suicide Precautions [OM.PC] Q15M 05/27/20 21:08 Suicide Precautions [OM.PC] Q15M 05/27/20 21:23 Suicide Precautions [OM.PC] Q15M 05/27/20 21:38 Suicide Precautions [OM.PC] Q15M 05/27/20 21:53 Suicide Precautions [OM.PC] Q15M 05/27/20 22:08 Suicide Precautions [OM.PC] Q15M 05/27/20 22:23 Suicide Precautions [OM.PC] Q15M 05/27/20 22:38 Suicide Precautions [OM.PC] Q15M 05/27/20 22:53 Suicide Precautions [OM.PC] Q15M 05/27/20 23:08 Suicide Precautions [OM.PC] Q15M 05/27/20 23:23 Suicide Precautions [OM.PC] Q15M 05/27/20 23:38 Suicide Precautions [OM.PC] Q15M 05/27/20 23:53 Suicide Precautions [OM.PC] Q15M 05/28/20 00:08 Suicide Precautions [OM.PC] Q15M 05/28/20 00:23 Suicide Precautions [OM.PC] Q15M 05/28/20 00:38 Suicide Precautions [OM.PC] Q15M 05/28/20 00:53 Suicide Precautions [OM.PC] Q15M - Plan Plan:: ASSESSMENT AND PLAN ACETAMINOPHEN OVERDOSE-intentional in an apparent suicide attempt. He has completed acetylcysteine infusion. Tylenol level is almost nonexistent and liver tests have remained stable. He is now medically stable and ready for transfer to inpatient psychiatric facility SUICIDE ATTEMPT-he admits depression and ongoing suicidal ideation -72-hour hold if needed -Plan transfer to inpatient psych for further evaluation and treatment HISTORY OF METHAMPHETAMINE ABUSE-no evidence of significant withdrawal -Monitor for withdrawal -Lorazepam as needed for management of withdrawal MAINTENANCE ISSUES -DVT prophylaxis; not indicated -GI prophylaxis; not indicated -Gaston catheter; not indicated -Nutrition; regular diet -Nicotine dependence; not required CODE STATUS-FULL CODE ADMISSION STATUS-patient will be admitted to inpatient status, expect at least a 2 night hospital stay for evaluation and management of problems as outlined above. At the time of this admission I do not reasonably expected evaluation and management of this problem will require more than a 96 hour hospital stay. DISPOSITION-anticipate discharge to home after the hospital stay. PRIMARY CARE PROVIDER-
--- NOTE | 2020-05-27 09:13 | PCM.DCSUM1 ---
Discharge Summary - Hospital Course Brief History: 24-year-old male with history of methamphetamine abuse who presented after an intentional overdose of unknown medications. He was admitted for management of suicide attempt and elevated acetaminophen level. Diagnosis: Stroke: No - Discharge Data Discharge Date: 05/27/20 Discharge Disposition: DC/Tfer to Psych Hosp/Unit 65 Condition: Stable - Referral to Home Health Primary Care Physician: PCP None - Patient Summary/Data Hospital Course: Fabian presented to the emergency room after an intentional ingestion of a variety of medications. He was not clear what all he took. Work-up in the emergency room was fairly unremarkable other than a mildly elevated acetaminophen level at 56. Poison control was contacted and they did recommend the 20-hour infusion of acetylcysteine. He has been stable throughout the course of the hospital stay. His acetaminophen level is now down to 1. He continues to have suicidal ideations. I think he would benefit from inpatient psychiatric evaluation and treatment. He is medically stable and safe for transport at this time. There has been no evidence for methamphetamine withdrawal or intoxication. His vital signs have all been stable. There have been no behavior issues. - Patient Instructions Diet: Regular Diet as Tolerated Activity: As Tolerated - Discharge Plan *PRESCRIPTION DRUG MONITORING PROGRAM REVIEWED*: Not Applicable *COPY OF PRESCRIPTION DRUG MONITORING REPORT IN PATIENT DAVID: Not Applicable Home Medications: Home Meds NK [No Known Home Meds] 05/25/20 [History] Oxygen Therapy Mode: Room Air Referrals: PCP,None [Primary Care Provider] - (f/u as needed after the hospital stay ) - Discharge Summary/Plan Comment DC Time >30 min.: Yes (40-transfer to inpatient psych ) - Patient Data Vitals - Most Recent: Last Vital Signs Temp 36.5 C 05/27/20 08:00 Pulse 73 05/27/20 08:00 Resp 20 05/27/20 08:00 BP 102/60 05/27/20 06:00 Pulse Ox 97 05/27/20 08:00 Weight - Most Recent: 72.1 kg I&O - Last 24 hours: Intake & Output 05/26/20 05/27/20 05/27/20 22:59 06:59 14:59 Intake Total 800 360 Balance 800 360 Lab Results - Last 24 hrs: Laboratory Results - last 24 hr 05/26/20 05/26/20 Range/Units 12:51 12:51 PT 12.3 H (9.5-12.0) sec INR 1.13 (0.80-1.20) Sodium 142 (140-148) mmol/L Potassium 4.1 (3.6-5.2) mmol/L Chloride 107 (100-108) mmol/L Carbon Dioxide 28 (21-32) mmol/L Anion Gap 7.4 (5.0-14.0) mmol/L BUN 6 L (7-18) mg/dL Creatinine 0.8 (0.8-1.3) mg/dL Est Cr Clr Drug Dosing 141.90 mL/min Estimated GFR (MDRD) > 60 (>60) Glucose 108 H (74-106) mg/dL Calcium 8.1 L (8.5-10.1) mg/dL Total Bilirubin 0.2 (0.2-1.0) mg/dL AST 21 (15-37) U/L ALT 49 (12-78) U/L Alkaline Phosphatase 51 (46-116) U/L Total Protein 6.3 L (6.4-8.2) g/dL Albumin 3.0 L (3.4-5.0) g/dL Globulin 3.3 (2.3-3.5) g/dL Albumin/Globulin Ratio 0.9 L (1.2-2.2) Acetaminophen 1.0 L (10.0-30.0) ug/mL Med Orders - Current: Current Medications Lorazepam (Ativan) 0.5 mg IVPUSH Q2H PRN PRN Reason: Agitation Ondansetron HCl (Zofran) 4 mg IV Q4H PRN PRN Reason: Nausea/Vomiting Sodium Chloride (Saline Flush) 10 ml FLUSH ASDIRECTED PRN PRN Reason: Keep Vein Open Discontinued Medications Acetylcysteine 10,886 mg/ (Dextrose/Water) 254.43 mls @ 254.43 mls/hr IV STAT STA; Protocol Stop: 05/25/20 16:13 Last Admin: 05/25/20 16:33 Dose: 254.43 mls/hr Documented by: Acetylcysteine 3,629 mg/ (Dextrose/Water) 518.145 mls @ 129.536 mls/hr IV ONETIME ONE; Protocol Stop: 05/25/20 18:22 Last Admin: 05/25/20 19:35 Dose: 129.536 mls/hr Documented by: Acetylcysteine 7,258 mg/ (Dextrose/Water) 1,036.29 mls @ 64.768 mls/hr IV ONETIME ONE; Protocol Stop: 05/26/20 14:19 Last Admin: 05/25/20 23:47 Dose: 64.768 mls/hr Documented by: Sodium Chloride (Normal Saline) 1,000 mls @ 125 mls/hr IV ASDIRECTED [facility] Last Admin: 05/26/20 12:59 Dose: 125 mls/hr Documented by: Acetylcysteine (Acetadote 20%) Confirm Administered Dose 60 mls @ as directed . ROUTE .STK-MED ONE Stop: 05/25/20 22:16 Last Admin: 05/26/20 00:00 Dose: Not Given Documented by: Potassium Chloride 20 meq/ (Premix) 0 mls @ 50 mls/hr IV Q2H [facility] Stop: 05/26/20 01:46 Last Admin: 05/26/20 02:25 Dose: 50 mls/hr Documented by: Potassium Chloride (Kcl 20 Meq In Water 100 Ml) Confirm Administered Dose 200 mls @ as directed .ROUTE .STK-MED ONE Stop: 05/26/20 00:14 Last Admin: 05/26/20 03:08 Dose: Not Given Documented by: Lidocaine HCl (Xylocaine-Mpf 1%) 5 ml INJECT ONETIME ONE Stop: 05/25/20 23:51 Last Admin: 05/26/20 03:11 Dose: 5 ml Documented by: Metoclopramide HCl (Reglan) 5 mg IVPUSH ONETIME ONE Stop: 05/25/20 14:02 Last Admin: 05/25/20 14:09 Dose: 5 mg Documented by: Potassium Chloride (Klor-Con M20) 40 meq PO ONETIME ONE Stop: 05/25/20 23:50 Last Admin: 05/26/20 00:20 Dose: 40 meq Documented by: Potassium Chloride (Klor-Con M20) 40 meq PO ONETIME ONE Stop: 05/26/20 08:31 Last Admin: 05/26/20 09:50 Dose: 40 meq Documented by: Sodium Chloride (Saline Flush) 10 ml FLUSH ASDIRECTED PRN PRN Reason: Keep Vein Open Last Admin: 05/25/20 14:10 Dose: 10 ml Documented by: Sodium Chloride (Saline Flush) 10 ml FLUSH ASDIRECTED PRN PRN Reason: Keep Vein Open Last Admin: 05/25/20 16:35 Dose: 10 ml Documented by: *Q Meaningful Use (DIS) - VTE *Q VTE Pharmacological Contraindications *Q: Not Candidate LT Anticoag
== END 2020-05-27 10:51 | DRG 918 ==
LOC: JP.ED 13:38 → JP.ICU 18:13
PROVIDERS: ADMIT Hospitalist; ATTEND Hospitalist
DX: T39.1X2A Poisoning by 4-Aminophenol derivatives, intentional self-harm, initial encounter (principal); F15.10 Other stimulant abuse, uncomplicated
CPT/HCPCS: 36415; 80048; 80053; 80305-QW; 80307; 83605; 83735; 85025; 85610; 93005; 93010; 96365; 96375; 99285-25; A9270-GY; J0132; J2001; J2765; J3480; J7030; J7060